=== PATIENT | female | born 1990 | race Caucasian/White ===

== ENCOUNTER 2023-11-11 21:50 | Emergency (ER) | payer OTHER ==
[2023-11-11] MEDS ORDERED: Sodium Chloride 0.9% 10 ML Syringe FLUSH PRN (22:16)
[2023-11-11] MEDS: Lactated Ringers 1,000 ML IV ONE ×2 (22:35→23:40)
[2023-11-11] MEDS: Ondansetron 4 MG/2 ML SDV IVPUSH ONE (22:36)
[2023-11-11 22:37] LABS: HEMATOCRIT 38.1 % (33.0-47.0); HEMOGLOBIN 13.4 g/dL (12.0-16.0); IMMATURE GRAN ABSOLUTE AUTO 0.02 x10^3/uL (0.00-0.07); LYMPHOCYTES ABSOLUTE AUTO 0.8 x10^3/uL (1.0-4.8); LYMPHOCYTES PERCENT AUTO 4.8 % (25.0-50.0); MEAN CORPUSCULAR HEMOGLOBIN 30.2 pg (26.0-32.0); MEAN CORPUSCULAR HGB CONC 35.2 g/dL (32.0-36.0); MEAN CORPUSCULAR VOLUME 85.8 fL (78.0-93.0); MONOCYTES ABSOLUTE AUTO 0.5 x10^3/uL (0.0-0.8); MONOCYTES PERCENT AUTO 2.9 % (2.0-11.0); NEUTROPHILS ABSOLUTE AUTO 15.5 x10^3/uL (1.8-7.7); NEUTROPHILS PERCENT AUTO 92.2 % (50.0-80.0); PLATELET COUNT,PLT 310 x10^3/uL (130-400); RED BLOOD CELL COUNT 4.44 x10^6/uL (4.00-5.50); WHITE BLOOD CELL COUNT,WBC 16.8 x10^3/uL (4.0-10.0)
[2023-11-11 22:38] LABS: APPEARANCE,URINE SLIGHTLY CLOUDY (CLEAR); BILIRUBIN,URINE NEGATIVE (NEGATIVE); COLOR,URINE YELLOW (YELLOW); GLUCOSE,URINE NEGATIVE (NEGATIVE); KETONES,URINE TRACE mg/dL (NEGATIVE); LEUKOCYTE ESTERASE,URINE NEGATIVE (NEGATIVE); NITRITE,URINE NEGATIVE (NEGATIVE); OCCULT BLOOD,URINE MODERATE (NEGATIVE); PH,URINE 6.5 (5.0-8.0); PROTEIN,URINE 30 mg/dL (NEGATIVE); UROBILINOGEN,URINE 0.2 EU/dL (0.2)
[2023-11-11] MEDS: HYDROmorphone 0.5 MG/0.5 ML Syringe IVPUSH ONE (22:38)
[2023-11-11 22:45] LABS: BACTERIA,URINE OCCASIONAL /HPF (NOT SEEN); MUCUS,URINE OCCASIONAL /LPF (NOT SEEN); SQUAMOUS EPITHELIAL CELLS,UR MODERATE /HPF (NOT SEEN); WBC,URINE 0-5 /HPF (NOT SEEN)
[2023-11-11 22:51] LABS: INR 1.2 (0.9-1.1); PROTHROMBIN TIME 11.6 SEC (8.9-11.5); PTT,PARTIAL THROMBOPLSTIN TIME 29.4 SEC (21.9-33.8)
[2023-11-11 22:57] LABS: LACTIC ACID 3.4 mmol/L (0.4-2.0)
[2023-11-11 23:01] LABS: A/G RATIO 1.13; ALANINE AMINOTRANSFERASE,ALT 21 U/L (14-59); ALBUMIN 4.3 g/dL (3.4-5.0); ALKALINE PHOSPHATASE 76 U/L (46-116); AMYLASE 26 U/L (25-115); ASPARTATE AMNIOTRANSFERASE,AST 21 U/L (15-37); BILIRUBIN TOTAL 0.7 mg/dL (0.2-1.0); BLOOD UREA NITROGEN,BUN 10 mg/dL (7-18); CARBON DIOXIDE,CO2 21 mmol/L (21-32); CHLORIDE,CL 101 mmol/L (98-107); CREATININE 0.9 mg/dL (0.55-1.02); EST CRCL DRUG DOSING (CG) 66.46 mL/min; GLUCOSE RANDOM 134 mg/dL (70-99); LIPASE 33 U/L (19-71); MAGNESIUM 1.7 mg/dL (1.8-2.4); POTASSIUM,K 3.6 mmol/L (3.5-5.1); PROTEIN TOTAL,TP 8.1 g/dL (6.4-8.2); SODIUM,NA 139 mmol/L (136-145); TSH ULTRASENSITIVE 3.236 uIU/mL (0.358-3.74)
[2023-11-11 23:03] LABS: ANION GAP 20.6 mmol/L (5-15); C-REACTIVE PROTEIN < 0.50 mg/dL (<=0.50); ESTIMATED GFR 86 mL/min (>=60)
[2023-11-11 23:13] LABS: CORONAVIRUS COVID-19 NAA NEGATIVE (NEGATIVE); INFLUENZA A NAA NEGATIVE (NEGATIVE); INFLUENZA B NAA NEGATIVE (NEGATIVE); RESPIRATORY SYNCYTIAL VIR NAA NEGATIVE (NEGATIVE)
[2023-11-11] MEDS: Iopamidol 612 MG/ML 100 ML Bottle IVPUSH ONE (23:25)
[2023-11-12] MEDS: HYDROmorphone 0.5 MG/0.5 ML Syringe IVPUSH ONE (00:25)
[2023-11-12] MEDS: Piperacillin/Tazobactam 4.5 GM in Sodium Chloride 0.9% 100 ML IV ONE (00:31)
== END 2023-11-12 01:09 | disposition short-term general hospital (02) ==
LOC: VM.ED 21:50
DX: K37 Unspecified appendicitis (principal); Z88.0 Allergy status to penicillin
CPT/HCPCS: 0241U; 36415; 74177; 80053; 81001; 81025; 82150; 83605; 83690; 83735; 84443; 85025; 85610; 85730; 86140; 96361; 96365; 96375; 96376; 99285-25; J1170; J2405; J2543; J3490; J7120; Q9967